=== PATIENT | female | born 1940 | race Caucasian/White ===

== ENCOUNTER 2018-08-31 08:40 | Observation (INO) ==
--- NOTE | 2018-08-26 08:23 | EKG Report ---
Test Performed on : 08/26/2018 07:53:37 AM Test Reason : PAT Blood Pressure : / mmHG Vent. Rate : 065 BPM Atrial Rate : 065 BPM P-R Int : 162 ms QRS Dur : 092 ms QT Int : 430 ms P-R-T Axes : 085 077 081 degrees QTc Int : 447 ms Sinus rhythm. with premature atrial complexes. Nonspecific T wave abnormality Abnormal ECG No previous ECGs available Confirmed by Daniel Moore MD ([id number]) on 08/26/2018 6:05:47 PM
[2018-08-26 08:30] LABS: URINE SOURCE CLEAN CATCH
[2018-08-26 09:07] LABS: BILIRUBIN URINE NEGATIVE (NEGATIVE); BLOOD URINE NEGATIVE (NEGATIVE); COLOR YELLOW; GLUCOSE URINE NEGATIVE (NEGATIVE); KETONE URINE NEGATIVE (NEGATIVE); LEUKOCYTES URINE NEGATIVE (NEGATIVE); NITRITE URINE NEGATIVE (NEGATIVE); PH URINE 5.5; PROTEIN URINE NEGATIVE (NEGATIVE); SP GRAVITY URINE 1.019; TURBIDITY URINE CLEAR (CLEAR); UROBILINOGEN URINE NORMAL (NORMAL)
[2018-08-26 09:08] LABS: BASO# 0.09 X1000 (0.0-0.2); EOS# 2.59 X1000 (0.0-0.7); EOS% 28.3 % (0.0-10.0); HEMOGLOBIN 13.1 g/dL (12.0-16.0); LYMPH# 1.91 X1000 (1.2-3.4); LYMPH% 20.9 % (20.5-51.1); MCH 29.9 PG (27-31); MCV 93.6 FL (81-99); MONO# 0.75 X1000 (0.11-0.59); MONO% 8.2 % (1.7-9.3); MPV 9.8 FL (7.4-10.4); NEUT% 41.6 % (42.2-75.2); PLT 300 X1000 (130-400); RBC 4.38 XMIL (4.2-5.4); RDW 12.1 % (11.5-14.5); WBC 9.14 X1000 (4.8-10.8)
[2018-08-26 09:11] LABS: UR EPITHELIAL CELLS <10 /HPF (<10); URINE BACTERIA NEGATIVE /HPF; URINE RBC <10 /HPF (<10); URINE WBC <10 /HPF (<10)
[2018-08-26 09:14] LABS: INR 0.96; PROTIME 13.5 Seconds (11.0-16.0); PTT 28.6 Seconds (22.3-41.8)
[2018-08-26 09:26] LABS: ALBUMIN 4.4 g/dL (3.5-5.0); CALCIUM 8.5 mg/dL (8.8-10.2); CREATININE 1.2 mg/dL (0.5-0.9); POTASSIUM 4.3 mmol/L (3.5-5.1)
[2018-08-26 09:37] LABS: HEMOGLOBIN A1C 5.4 % (4.8-6.0)
[2018-08-31] MEDS ORDERED: PEPCID ONE (09:17)
[2018-08-31] MEDS ORDERED: COLACE ONE (09:17)
[2018-08-31] MEDS ORDERED: REGLAN ONE (09:17)
[2018-08-31] MEDS ORDERED: LYRICA ONE (09:17)
[2018-08-31] MEDS ORDERED: KEFZOL 1 GM/D5W 1 GM/50 ML IVPB ONE (09:18)
[2018-08-31] MEDS ORDERED: LR 1,000 ML ONE (09:18)
[2018-08-31] MEDS ORDERED: DURAMORPH ONE (10:47)
[2018-08-31] MEDS ORDERED: VANCOMYCIN ONE (10:47)
[2018-08-31] MEDS ORDERED: MARCAINE 0.25% PF ONE (10:47)
[2018-08-31] MEDS ORDERED: TORADOL ONE (10:47)
[2018-08-31] MEDS ORDERED: NEOSPORIN G.U. IRRIGANT ONE ×2 (10:48→12:36)
[2018-08-31] MEDS ORDERED: EXPAREL 1.3% ONE (10:48)
[2018-08-31] MEDS ORDERED: CYKLOKAPRON 1,000 MG/NS 1,000 MG/100 ML IVPB ONE ×2 (10:48→10:50)
[2018-08-31] MEDS ORDERED: SODIUM CHLORIDE 0.9% ONE (10:48)
[2018-08-31] MEDS ORDERED: VERSED ONE (11:29)
[2018-08-31] MEDS ORDERED: DIPRIVAN 1% ONE (11:38)
[2018-08-31] MEDS ORDERED: XYLOCAINE-MPF 2% ONE (13:29)
[2018-08-31] MEDS ORDERED: OFIRMEV 1000 MG/ISOTONIC SOLN 1,000 MG/100 ML BOTTLE ONE (13:30)
[2018-08-31] MEDS ORDERED: ZOFRAN ONE (13:30)
[2018-08-31] MEDS ORDERED: DECADRON ONE (13:30)
[2018-08-31] MEDS ORDERED: NS 1,000 ML ONE (14:11)
[2018-08-31] MEDS: MORPHINE ONE ×2 (14:26→14:36)
[2018-08-31] MEDS ORDERED: OXY IR ONE (14:50)
[2018-08-31] MEDS ORDERED: MILK OF MAGNESIA PO PRN (16:30)
[2018-08-31] MEDS ORDERED: ZOFRAN ODT PO PRN (16:30)
[2018-08-31] MEDS ORDERED: ZOFRAN IV PRN (16:30)
[2018-08-31] MEDS ORDERED: OXY IR PO PRN ×2 (16:30)
[2018-08-31] MEDS ORDERED: NS 1,000 ML IV SCH (16:30)
[2018-08-31] MEDS ORDERED: MORPHINE IV PRN ×3 (16:30)
--- NOTE | 2018-08-31 17:05 | OPERATIVE NOTE ---
PROCEDURE DATE: 08/31/2018 PREOPERATIVE DIAGNOSIS: Left knee degenerative joint disease. POSTOPERATIVE DIAGNOSIS: Left knee degenerative joint disease. PROCEDURE PERFORMED: Left total knee arthroplasty using a Aesculap size 4 narrow femur, a size T2 tibial base plate, a Anthony posterior stabilized gliding surface 10 mm articular insert, a 12 mm tibial obturator screw, and a size P3 patella. ANESTHESIA: Spinal. SURGEON: Wili Purdy MD. ASSIST: Aurelia May PA-C, who was present throughout the case, whose assistance was critical for exposure, placement of the implants, and closure. Her assistance greatly reduced anesthesia and operative time and improved efficiency in the OR. BLOOD LOSS: Minimal. TOURNIQUET TIME: Approximately an hour. DESCRIPTION OF PROCEDURE: The patient was brought to the operative suite and placed in supine position. After successful administration of general anesthesia, a well-padded tourniquet was placed on the left proximal thigh. Left lower extremity was prepped and draped in the usual sterile fashion. Leg was exsanguinated. Tourniquet insufflated to 350 torr. A longitudinal incision was made beginning at the superior pole patella extending distally to the tibial tuberosity. It was dissected sharply through skin and down to the fascia. Then a medial arthrotomy was made and the medial capsule was elevated off the medial tibial plateau. The ACL, PCL, medial meniscus, and lateral meniscus were excised. A drill was entered into the distal femur. Intramedullary guide was placed. Distal cutting block was pinned in place. Distal cut was made with an oscillating saw. The femur was sized to a size 4. This was pinned into place and the size 4 cutting block was pinned into place. Then the anterior cuts, chamfer cuts, and posterior condylar cuts were made with an oscillating saw. Marginal osteophytes were removed with a rongeur. The posterior condyle osteophytes were removed with a curved osteotome and rongeur. Attention was then directed to the tibia. The extramedullary guide was placed and once it was positioned, taking 2 mm off the low side of the tibia which in this case was medially, the tibial cutting block was pinned in place with 3 mm of posterior slope. This was then cut. It was found to be tight in both extension and flexion. Therefore, 2 more millimeters were taken. At this point, it was balanced at flexion and extension gap of 10 mm. It was sized to a size 2 tibia. The size 2 tibia was pinned into place, the trial, and the fin punch was placed. Attention was directed to the femur. The femur was driven into place. The notch osteotome was used and the balance of the bone was removed with an oscillating saw and then the notch trial was placed. A 10 mm articular insert was placed and the knee was taken through range of motion. It was again found to have excellent alignment, balancing, and range of motion. Attention was directed to the patella. Then 9 mm of the articular surface of the patella were removed with an oscillating saw. Using the guide, 3 PEG holes were drilled. The lateral facet was chamfered 30 to 45 degrees. Patella trial was placed and found to have excellent patella tracking. All trials were then removed. The knee was copiously irrigated and dried, being certain all bone and cement debris was removed. The drill hole for the femur was plugged with a piece of bone plug from 1 of the chamfers and then the tibial component, femoral component, and patellar component were cemented into place, excess cement being removed with the Deville. Once the cement had hardened, excess cement was again removed with an osteotome. The knee was again copiously irrigated and dried, being certain all bone and cement debris was removed. The trial articular insert was removed and then the definitive articular insert was placed. Excellent alignment, balancing, range of motion, and patellar tracking was obtained. The drain was placed exiting superolaterally and buried in the lateral gutter. The tourniquet was deflated. Hemostasis was obtained with electrocautery. The knee was then injected with Exparel including the posterior capsule, anterior capsule, medial and lateral collateral ligaments, intermuscular and subcutaneous tissue. The medial arthrotomy was closed with #1 Vicryl. The skin edge approximated with 2-0 Vicryl. Skin was closed with Prineo and a sterile dressing was applied. The patient tolerated the procedure well without complications. At the end of the procedure all counts were correct x2. The patient was transferred to the recovery room in stable condition. cc: Wili Purdy MD
[2018-08-31] MEDS: ULTRAM PO SCH ×2 (17:48→22:55)
[2018-08-31] MEDS: TYLENOL PO SCH (17:48)
[2018-08-31] MEDS: KEFZOL 1 GM/D5W 1 GM/50 ML IVPB IV SCH (17:49)
[2018-08-31] MEDS ORDERED: ALLEGRA PO PRN (18:48)
[2018-08-31] MEDS: LYRICA PO SCH (20:51)
[2018-08-31] MEDS: COLACE PO SCH (20:51)
[2018-08-31] MEDS: PERIDEX MT SCH (20:52)
[2018-08-31 21:30] LABS: URINE SOURCE CATH
[2018-08-31 21:36] LABS: BILIRUBIN URINE NEGATIVE (NEGATIVE); BLOOD URINE NEGATIVE (NEGATIVE); COLOR STRAW; GLUCOSE URINE NEGATIVE (NEGATIVE); KETONE URINE NEGATIVE (NEGATIVE); LEUKOCYTES URINE NEGATIVE (NEGATIVE); NITRITE URINE NEGATIVE (NEGATIVE); PROTEIN URINE NEGATIVE (NEGATIVE); SP GRAVITY URINE 1.007; TURBIDITY URINE CLEAR (CLEAR); UROBILINOGEN URINE NORMAL (NORMAL)
[2018-08-31 21:37] LABS: UR EPITHELIAL CELLS <10 /HPF (<10); URINE BACTERIA NEGATIVE /HPF; URINE RBC <10 /HPF (<10); URINE WBC <10 /HPF (<10)
[2018-08-31] MEDS: LOPRESSOR PO SCH (22:54)
[2018-09-01] MEDS: KEFZOL 1 GM/D5W 1 GM/50 ML IVPB IV SCH ×2 (02:27)
[2018-09-01] MEDS: ULTRAM PO SCH ×3 (06:00→17:52)
[2018-09-01] MEDS: SYNTHROID PO SCH (06:01)
[2018-09-01] MEDS: TYLENOL PO SCH ×3 (06:01→17:51)
[2018-09-01 06:50] LABS: HEMATOCRIT 35.5 % (37.0-47.0); HEMOGLOBIN 11.5 g/dL (12.0-16.0)
[2018-09-01 07:36] LABS: CALCIUM 8.6 mg/dL (8.8-10.2); CREATININE 1.1 mg/dL (0.5-0.9); POTASSIUM 4.7 mmol/L (3.5-5.1)
[2018-09-01] MEDS ORDERED: DECADRON IV ONE (09:00)
--- NOTE | 2018-09-01 09:08 | ORTHOPAEDICS PROGRESS NOTE ---
DATE: 09/01/2018 SUBJECTIVE: Oralia Esteves is a 78-year-old female, who underwent a total knee arthroplasty yesterday. She complains of left foot numbness and inability to move her foot. She has no pain in her legs. OBJECTIVE: General: She is a well-developed, well-nourished female. She is alert and cooperative with exam. Vital signs: Stable. She is afebrile. Extremities: Exam of her leg reveals a footdrop on the left and decreased sensation of the dorsum of her foot. She has brisk capillary refill, and her foot is otherwise neurovascularly intact. Neurologic: She has not walked yet with physical therapy. LABS: Her hematocrit is 35.5%, her hemoglobin is 11.5. ASSESSMENT: Left knee with footdrop. Given her footdrop and her anxiety, we are going to have her work with therapy twice a day. I will order her a footdrop brace and see her back in the morning. We will convert her to a full admission today. cc: Wili Purdy MD
[2018-09-01] MEDS: FLONASE NAS SCH (12:34)
[2018-09-01] MEDS: SINGULAIR PO SCH (12:35)
[2018-09-01] MEDS: MOBIC PO SCH (12:35)
[2018-09-01] MEDS: ASPIRIN PO SCH (12:35)
[2018-09-01] MEDS: NORVASC PO SCH (12:35)
[2018-09-01] MEDS: CENTRUM SILVER PO SCH (12:35)
[2018-09-01] MEDS: LOPRESSOR PO SCH ×2 (12:36→21:46)
[2018-09-01] MEDS: COLACE PO SCH ×2 (12:36→21:46)
[2018-09-01] MEDS: LYRICA PO SCH ×2 (12:36→21:46)
[2018-09-01] MEDS: PERIDEX MT SCH ×2 (12:36→21:45)
[2018-09-01] MEDS: PEPCID PO SCH (12:36)
[2018-09-01] MEDS: ZOLOFT PO SCH (12:36)
[2018-09-01] MEDS: VITAMIN D PO SCH (12:36)
[2018-09-01] MEDS: PATIENT'S OWN MED PO SCH ×2 (16:28→16:29)
[2018-09-01] MEDS ORDERED: LIPITOR PO SCH (21:00)
[2018-09-02] MEDS: ULTRAM PO SCH ×3 (00:41→11:09)
[2018-09-02] MEDS: TYLENOL PO SCH ×3 (00:42→11:10)
[2018-09-02 07:30] VITALS: BP 133/66
[2018-09-02] MEDS: SYNTHROID PO SCH (07:35)
[2018-09-02] MEDS: PEPCID PO SCH (08:34)
[2018-09-02] MEDS: PERIDEX MT SCH (08:34)
[2018-09-02] MEDS: NORVASC PO SCH (08:34)
[2018-09-02] MEDS: MOBIC PO SCH (08:34)
[2018-09-02] MEDS: CENTRUM SILVER PO SCH (08:34)
[2018-09-02] MEDS: LOPRESSOR PO SCH (08:34)
[2018-09-02] MEDS: SINGULAIR PO SCH (08:34)
[2018-09-02] MEDS: COLACE PO SCH (08:35)
[2018-09-02] MEDS: FLONASE NAS SCH (08:35)
[2018-09-02] MEDS: ASPIRIN PO SCH (08:35)
[2018-09-02] MEDS: VITAMIN D PO SCH (08:36)
[2018-09-02] MEDS: PATIENT'S OWN MED PO SCH ×2 (08:36→08:37)
[2018-09-02] MEDS: ZOLOFT PO SCH (08:43)
[2018-09-02] MEDS: LYRICA PO SCH (08:43)
--- NOTE | 2018-09-03 09:23 | DISCHARGE SUMMARY ---
ADMISSION DATE: 08/31/2018 DISCHARGE DATE: 09/02/2018 DISCHARGE DIAGNOSIS: Left knee degenerative joint disease, status post left total knee arthroplasty. DISCHARGE MEDICATIONS: See discharge medication list. DISPOSITION: The patient is discharged home with home health. DISCHARGE INSTRUCTIONS: Instructions for total knee arthroplasty protocol. She is also instructed to wear her footdrop brace while ambulating, and instructed to return to see Dr. Purdy next . HOSPITAL COURSE: On the day of admission, patient underwent a left total knee arthroplasty. Her postoperative course was unremarkable. The patient does have a footdrop on the left postoperatively, but she is ambulating well with physical therapy. Today, she walked 110 feet. She is tolerating regular diet, and she is afebrile. Her left knee dressing is clean, dry, and intact. Her left leg grossly neurovascularly intact. She is discharged home in stable condition with instructions to follow up as described above. Dictated by VITALIY Rico for Wili Purdy MD cc: VITALIY Rico MD
== END 2018-09-02 11:39 | disposition home health service (06) ==
LOC: 4N 08:40 → OR 08:40 → UNDODISOB 09-01 14:06
PROVIDERS: ADMIT Orthopaedic Surgery; ATTEND Orthopaedic Surgery
CPT/HCPCS: 80048; 81001; 82040; 83036; 85014; 85018; 85025; 85610; 85730; 86850; 86900; 86901; 88305; 88311; 93005; 93010; 94761; 94799; 97110; 97116; 97162; A9270; C9290; J0131; J0690; J1100; J1885; J2250; J2270; J2274; J2275; J2405; J3370; J7030; J7120; Q9974; S0020